=== PATIENT | female | born 1995 | race Caucasian/White ===

== ENCOUNTER 2021-09-02 15:52 | Emergency (ER) | payer OTHER ==
[~2021-09-02] VITALS: Ht 160 cm; Wt 85.4 kg
[2021-09-02 15:55] VITALS: BP 145/94
--- NOTE | 2021-09-02 16:10 | NUR ---
US [employer] US, RAJESH CALLED IN PER EDP.
[2021-09-02] MEDS ORDERED: TYLENOL PO STA (16:15)
[2021-09-02] MEDS ORDERED: NS 1000ML 1,000 ML IV ONE (16:30)
[2021-09-02 16:33] LABS: BILIRUBIN,URINE NEGATIVE (NEGATIVE); UROBILINOGEN,URINE 0.2 E.U./dL (0.2)
[2021-09-02 16:34] LABS: BASOPHIL % 0.2 % (0.0-0.2); LYMPHOCYTES # 0.33 10^3/uL1 (1.0-4.8); MEAN CORP HGB 29.7 pg (26-34); MONOCYTES # 0.2 10^3/uL (0.3-0.8); NEUTROPHIL # 10.4 10^3/uL (1.8-7.7); NEUTROPHILS % 94.6 % (41.0-85.0); PLATELET COUNT 222 10^3/uL (150-400); RED CELL DISTRIBUTION WIDTH 13.5 % (11.5-14.5)
--- NOTE | 2021-09-02 16:34 | ER.PDOC ---
General Chief Complaint: Requesting Medical Care Stated Complaint: ABD PAIN,VOMITTING Time seen by MD: 16:01 Source: patient Exam Limitations: no limitations History of Present Illness Initial Comments 26-year-old female who is estimated at 17 weeks gestational age presents with nausea, vomiting and abdominal cramping. Patient explains that her daug hter was sick earlier last week with nausea vomiting and diarrhea but resolved with time. States that she started having symptoms last night at 8 PM which progressed with slight vomiting to include abdominal cramping to diarrhea and chills. Patient denies any travels, has not had any rashes. Denies any pain in her stomach just cramping and a feeling of dehydration. Patient has not had any vaginal leakage of fluid, bleeding, or back pain. No urinary symptoms, no cough, no congestion, no headache, no blurred vision, no leg swelling. Patient is not vaccinated for Covid flu. Has not tried anything for symptoms prior to arrival Severity/Quality: moderate, cramping Abdominal Pain Onset Location: Generalized Abdomen Associated Symptoms (vomiting): mild vomiting Associated Symptoms (diarrhea): mild, watery Allergies: Coded Allergies: No Known Allergies (Unverified , 09/02/21) Vital Signs First Vital Signs Date Time Temp Pulse Resp B/P (MAP) Pulse Ox O2 Delivery O2 Flow Rate FiO2 09/02/21 15:55 102.9 132 20 98 09/02/21 17:05 141/74 (96) Room Air Last Vital Signs Date Time Temp Pulse Resp B/P (MAP) Pulse Ox O2 Delivery O2 Flow Rate FiO2 09/02/21 17:43 102.9 116 20 132/77 (95) 98 Room Air All Other Systems: Reviewed and Negative Physical Exam General Appearance: No Apparent Distress, WD/WN HEENT: PERRL/EOMI, Normal ENT Inspection, TMs Normal, Pharynx Normal Neck: Non-Tender, Full Range of Motion, Supple, Normal Inspection Respiratory: chest non-tender, lungs clear, normal breath sounds, no respiratory distress, no accessory muscle use Cardiovascular: Normal Peripheral Pulses, No Edema, No Gallop, No JVD, No Murmur, Tachycardia Gastrointestinal: Normal Bowel Sounds, Non Tender, Hyperactive bowel sounds, Soft Pelvic: No Masses Back: Normal Inspection, No CVA Tenderness, No Vertebral Tenderness Extremities: Normal Range of Motion, Non-Tender, Normal Inspection, No Pedal Edema, No Calf Tenderness, Normal Capillary Refill, Pelvis Stable Neurologic/Psychiatric: No Motor/Sensory Deficits, Alert, Normal Mood/Affect, Oriented x 3 Skin: Normal Color, Warm/Dry Lymphatic: No Adenopathy Comments FHT measured at 184 bpm Results/Orders Results/Orders Orders - EJESIEME,AL C DO Cbc With Auto Diff (09/02/21 16:08) Comprehensive Metabolic Panel (09/02/21 16:08) PT (09/02/21 16:08) Partial Thromboplastin Time. (09/02/21 16:08) Abo/Rh Type (09/02/21 16:08) Urinalysis (09/02/21 16:08) Chlamydia/Gcamplification(Ref) (09/02/21 16:08) Saline Lock (09/02/21 16:08) Hcg, Quantitative (09/02/21 16:08) Covid19 Antigen Mirta Susan (09/02/21 16:08) Influenza A&B (09/02/21 16:08) Blood Culture (09/02/21 16:08) Urine Culture (09/02/21 16:08) Lactic Acid(Ml) (09/02/21 16:08) 0.9 % Sodium Chloride (Ns 1000ml) (09/02/21 16:30) Acetaminophen (Tylenol) (09/02/21 16:15) Ringer's Solution,Lactated (Lactated Rin (09/02/21 16:30) Ceftriaxone Sodium (Rocephin) (09/02/21 16:41) 0.9 % Sodium Chloride (Ns 1000ml) (09/02/21 16:46) Ringer's Solution,Lactated (Lactated Rin (09/02/21 16:46) Acetaminophen (Tylenol) (09/02/21 16:46) Us Preg After 14 Wks (09/02/21 16:48) 0.9 % Sodium Chloride (Ns 100ml) (09/02/21 17:16) Ceftriaxone Sodium (Rocephin) (09/02/21 17:16) Vital Signs Date Time Temp Pulse Resp B/P (MAP) Pulse Ox O2 Delivery O2 Flow Rate FiO2 09/02/21 17:43 102.9 116 20 132/77 (95) 98 Room Air 09/02/21 17:05 102.9 132 20 141/74 (96) 98 Room Air 09/02/21 15:55 102.9 132 20 09/02/21 15:55 102.9 132 20 98 Administered Medications Medications (Trade) Dose Ordered Sig/Jeni Route PRN Reason Start Time Stop Time Status Last Admin Dose Admin Acetaminophen (Tylenol) 1,000 mg STAT STAT PO 09/02/21 16:15 09/02/21 16:18 DC 09/02/21 16:38 1,000 MG Ceftriaxone Sodium 1000 mg/ Sodium Chloride 100 ml @ 100 mls/hr STAT STAT IV 09/02/21 16:41 09/02/21 17:40 DC 09/02/21 17:19 100 MLS/HR Laboratory Tests Test 09/02/21 16:10 09/02/21 16:15 09/02/21 16:40 Urine Collection Type RANDOM Urine Color YELLOW Urine Appearance CLOUDY Urine Bilirubin NEGATIVE (NEGATIVE) Urine Ketones 1+ (NEGATIVE) H Urine Specific [place] 1.025 (1.005-1.030) Urine pH 5.0 (4.5-8.0) Urine Protein 1+ (NEGATIVE) H Urine Urobilinogen 0.2 E.U./dL (0.2) Urine Nitrate POSITIVE (NEGATIVE) H Urine Leukocyte Esterase 1+ (NEGATIVE) H Urine Glucose (Auto)(UA) NEGATIVE (NEGATIVE) Urine Blood NEGATIVE (NEGATIVE) Urine RBC NONE SEEN RBC/HPF (NONE Urine WBC TooNumerousToCount WBC/HPF (0-2) Urine Squamous Epithelial Cells MODERATE (<=FEW) Urine Bacteria MODERATE (NONE SEEN) H White Blood Count 11.0 10^3/uL (4.5-11.0) Red Blood Count 4.31 10^6/uL (4.00-5.20) Hemoglobin 12.8 g/dL (12.0-15.0) Hematocrit 39.3 % (36.0-46.0) Mean Corpuscular Volume 91.2 fL (78-100) Mean Corpuscular Hemoglobin 29.7 pg (26-34) Mean Corpuscular Hemoglobin Concent 32.6 g/dL (33-36.5) L Red Cell Distribution Width 13.5 % (11.5-14.5) Platelet Count 222 10^3/uL (150-400) Mean Platelet Volume 10.3 fL (7.8-11.0) Neutrophils (%) (Auto) 94.6 % (41.0-85.0) *H Lymphocytes (%) (Auto) 3.0 % (24.0-44.0) *L Monocytes (%) (Auto) 2.0 % (5.0-12.0) L Neutrophils # (Auto) 10.4 10^3/uL (1.8-7.7) H Lymphocytes # (Auto) 0.33 10^3/uL1 (1.0-4.8) L Monocytes # (Auto) 0.2 10^3/uL (0.3-0.8) L Absolute Immature Granulocyte (auto 0.02 10^3 u/L (0-2) Absolute Eosinophils (auto) 0.0 10^3/uL (0.0-0.2) Immature Granulocytes % 0.20 % (0.00-0.50) Eosinophils % 0.0 % (0.0-5.0) Basophils % 0.2 % (0.0-0.2) Basophils # 0.0 10^3/uL (0.0-0.1) Prothrombin Time 10.3 SEC (9.1-11.5) Prothrombin Time INR (Non-Therap) 1.0 Activated Partial Thromboplast Time 27.6 SEC (22.5-33.1) Sodium Level 135 mmol/L (132-145) Potassium Level 3.7 mmol/L (3.6-5.2) Chloride Level 101.0 mmol/L (96-109) Carbon Dioxide Level 24.3 mmol/L (20.0-32) Anion Gap 13.4 Blood Urea Nitrogen 8 mg/dL (7-18) Creatinine 0.81 mg/dL (0.59-1.40) Estimated GFR () 103.4 (>/=60) Est GFR (CKD-EPI)(Non-Afr [place]ian) 85.5 (>/=60) BUN/Creatinine Ratio 9.0 Glucose Level 110 mg/dL (70-110) Lactic Acid Level 1.8 mmol/L (0.5-1.9) Calcium Level 8.9 mg/dL (8.4-10.5) Total Bilirubin 0.6 mg/dL (0.2-1.0) Aspartate Amino Transferase (AST) 17 U/L (0-35) Alanine Aminotransferase (ALT) 35 U/L (12-78) Alkaline Phosphatase 119 U/L (50-136) Total Protein 7.8 g/dL (6.4-8.2) Albumin 3.0 g/dL (3.4-5.0) L Globulin 4.8 Albumin/Globulin Ratio 0.625 Human Chorionic Gonadotropin, Quant 65693 mIU/mL Influenza Type A Antigen NEGATIVE (NEG) Influenza Type B Antigen NEGATIVE (NEG) SARS-CoV-2 Antigen (Rapid) NEGATIVE (NEGATIVE) Blood Bank Test 09/02/21 16:20 Blood Type O NEGATIVE Progress Progress Patient was found to have a UTI. Improved significantly with fluids, antipyretics, and antibiotics here in house. Discussed at length patient's diagnosis and need for close follow-up and strict ED return precautions including but not limited to fever that does not improve, heart rate that it is higher than her baseline, abdominal pain or cramping, back to vaginal leakage of fluid. Patient voiced understanding with her mother at bedside. Will discharge at this time with Keflex and Zogerald follow-up with her OB in 3 days ER DEPART Departure Time of Disposition: 18:41 Disposition: 01 HOME / SELF CARE / HOMELESS Impression: Primary Impression: Additional Impression: UTI (urinary tract infection) Condition: Improved Patient Instructions: - Urinary Tract Infection Referrals: PCP,UNKNOWN (PCP) PRIMARY CARE PROVIDER Additional Instructions: Follow-up with your [facility]TER in 3 days. Return to ED for any new or worsening symptoms. Tylenol for fever Duration or Time Spent with Pa: 75 min Problem Qualifiers AL TSAI DO Sep 02, 2021 16:34
[2021-09-02] MEDS: LACTATED RINGERS 1,000 ML IV SCH ×3 (16:39→18:22)
[2021-09-02] MEDS ORDERED: ROCEPHIN 1,000 MG in NS 100ML 100 ML IV STA (16:41)
[2021-09-02] MEDS ORDERED: NS 1000ML 1,000 ML ONE (16:46)
[2021-09-02] MEDS ORDERED: TYLENOL PO ONE (16:46)
[2021-09-02] MEDS ORDERED: LACTATED RINGERS 1,000 ML ONE (16:46)
--- NOTE | 2021-09-02 16:48 | NUR ---
US RAJESH WITH US, PRESENT FOR US.
[2021-09-02 17:05] VITALS: BP 141/74
[2021-09-02] MEDS ORDERED: ROCEPHIN ONE (17:16)
[2021-09-02] MEDS ORDERED: NS 100ML 100 ML IV ONE (17:16)
[2021-09-02 17:17] LABS: CARBON DIOXIDE 24.3 mmol/L (20.0-32)
--- NOTE | 2021-09-02 17:38 | DIREP ---
PROCEDURE:US OB 2 3TRI DETAILED TRANSABD COMPARISON:None. INDICATIONS:abd pain , fever x1d TECHNIQUE: Transabdominal sonography of the gravid uterus was performed FINDINGS: NUMBER:[place]. POSITION:Variable, currently breech AMNIOTIC FLUID VOLUME:Largest vertical pocket, 3.8 cm, within normal limits PLACENTA:Anterior, overlying the os, though the gestation is early CERVIX:3.7 cm HEART RATE:174 BPM BIPARIETAL DIAMETER: 3.5 cm, 16 weeks 5 days HEAD CIRCUMFERENCE: 13 cm, 16 weeks 4 days ABD CIRCUMFERENCE: 10.9 cm, 16 weeks 6 days FEMUR LENGTH: 2.0 cm, 15 weeks 6 days ESTIMATED WEIGHT:154 g ULTRASOUND GA:16 weeks 4 days ULTRASOUND JESSICA:February 13, 2022 CLINICAL GA: 16 weeks 6 days CLINICAL JESSICA: February 11, 2022 CONCLUSION:Single live intrauterine gestation, 16 weeks 4 days, placenta overlying the internal os though this may be physiologic. Follow-up examination can confirm. Dictated by: Ciro Shin MD on 09/02/2021 at 05:33 PM
[2021-09-02 17:43] VITALS: BP 132/77
--- NOTE | 2021-09-02 18:50 | NUR ---
IV DC'D TIP INTACT, NO BLEEDING
[2021-09-02 18:53] VITALS: BP 109/54
== END 2021-09-02 18:53 | disposition home or self-care (01) ==
LOC: ER 15:52
DX: O23.42 Unspecified infection of urinary tract in pregnancy, second trimester (principal); O21.9 Vomiting of pregnancy, unspecified; O26.892 Other specified pregnancy related conditions, second trimester; R10.84 Generalized abdominal pain; Z20.822 Contact with and (suspected) exposure to COVID-19; Z3A.17 17 weeks gestation of pregnancy
CPT/HCPCS: 36415; 76805; 80053; 81001; 83605; 84702; 85025; 85610; 85730; 86900; 87040 ×2; 87077; 87086; 87186; 87426; 87491; 87591; 87804 ×2; 96361; 96365; 99284; A9150; J0696; J7030; J7120

== ENCOUNTER 2022-04-06 15:06 | Emergency (ER) | payer BC, OTHER ==
[~2022-04-06] VITALS: Ht 149.9 cm; Wt 81.6 kg
--- NOTE | 2022-04-06 15:06 | NUR ---
ARRIVAL PT ARRIVED VIA EMS TO ED 5 WITH C/O RIGHT LOW BACK PAIN AND N/V. EMS SAYS SHE WAS FOUND UNCONCIOUS IN HER CAR AND UPON ARRIVAL SHE WAS ALERT AND ORIENTED WITH GCS OF 15. PT SCOOTED OVER FROM GURNEY TO BED. EMS INITIATED IV. VITALS TAKEN AND DR IN ROOM.
[2022-04-06 15:09] VITALS: BP 131/86
[2022-04-06] MEDS ORDERED: ZOFRAN ONE (15:16)
[2022-04-06] MEDS ORDERED: TORADOL ONE (15:16)
[2022-04-06] MEDS: ZOFRAN IV STA (15:23)
[2022-04-06] MEDS: TORADOL IV STA (15:24)
[2022-04-06 15:27] LABS: BASOPHIL % 0.2 % (0.0-0.2); EOSINOPHIL % 0.1 % (0.0-5.0); LYMPHOCYTES # 1.14 10^3/uL1 (1.0-4.8); LYMPHOCYTES % 10.5 % (24.0-44.0); MEAN CORP HGB 27.4 pg (26-34); MONOCYTES # 0.3 10^3/uL (0.3-0.8); MONOCYTES % 3.1 % (5.0-12.0); NEUTROPHIL # 9.3 10^3/uL (1.8-7.7); NEUTROPHILS % 85.9 % (41.0-85.0); PLATELET COUNT 288 10^3/uL (150-400); RED CELL DISTRIBUTION WIDTH 14.6 % (11.5-14.5)
[2022-04-06 15:38] LABS: BILIRUBIN,URINE 1+ (NEGATIVE); UROBILINOGEN,URINE 0.2 E.U./dL (0.2)
[2022-04-06 15:44] LABS: CARBON DIOXIDE 25.6 mmol/L (20.0-32)
--- NOTE | 2022-04-06 16:26 | DIREP ---
PROCEDURE:CT ABD/PELVIS WITHOUT CONTRAST TECHNIQUE:No oral contrast was given. Axial cuts were obtained through the abdomen and pelvis without IV contrast. The images were viewed at lung and soft tissue settings. Sagittal and coronal reconstructions are provided. COMPARISON:None. INDICATIONS:ABD PAIN FINDINGS: LOWER CHEST:No infiltrate or pleural effusion. LIVER:Normal. BILIARY:Small layering gallstones. No pericholecystic inflammatory stranding or biliary duct dilatation. PANCREAS:Normal. SPLEEN:Normal. URINARY TRACT:Right proximal ureteral stone, 0.4 cm, at the level of L2/3 and causing mild/moderate hydronephrosis and minimal inflammatory stranding. No renal calculi. Unremarkable urinary bladder. ADRENALS:Normal. AORTA/VASCULAR:Normal. RETROPERITONEUM:Normal. BOWEL/MESENTERY:No bowel obstruction, inflammatory stranding, free fluid or air. Normal appendix. ABDOMINAL WALL:Small fat filled umbilical hernia. PELVIS:IUD appears in satisfactory position. Right 4.1 cm and left 5.5 cm adnexal cysts. BONES:Normal. OTHER:Normal. CONCLUSION: 1. 0.4 cm right ureteral stone causing mild/moderate hydronephrosis. 2. Bilateral adnexal cysts, likely ovarian in origin. 3. Cholelithiasis. Dictated by: Sarah Kearney MD on 04/06/2022 at 04:17 PM
[2022-04-06 16:45] VITALS: BP 131/86
--- NOTE | 2022-04-06 16:49 | ER.PDOC ---
General Chief Complaint: Lower Back Pain or Injury Stated Complaint: BACK PAIN Time seen by MD: 15:15 Source: patient, EMS Exam Limitations: no limitations History of Present Illness Initial Comments Patient is a 26-year-old female with no reported past medical history who comes in with Right-sided flank pain that started earlier this afternoon. Per EMS p atient had passed out secondary to pain in her vehicle and was found by the police. When EMS arrived patient was awake alert and oriented and had no issues. Patient states that she has a sharp right-sided flank pain that radiates towards her suprapubic area. Patient states that nothing seems to make the pain better or worse. Patient states that she has associated symptoms of mi ld nausea and has vomited once that was nonbilious nonbloody. Patient denies any other complaints or symptoms at this time including fever or dysuria. Allergies: Coded Allergies: No Known Allergies (Unverified , 09/02/21) Vital Signs First Vital Signs Date Time Temp Pulse Resp B/P (MAP) Pulse Ox O2 Delivery O2 Flow Rate FiO2 04/06/22 15:09 98.1 66 18 98 04/06/22 15:09 131/86 (101) Room Air* 0 21 Last Vital Signs Date Time Temp Pulse Resp B/P (MAP) Pulse Ox O2 Delivery O2 Flow Rate FiO2 04/06/22 15:09 98.1 66 18 131/86 (101) 98 Room Air* 0 21 Past Medical History Medical History: no pertinent history Surgical History: no surgical history Family History Significant Family History: no pertinent family hx Social History Smoking: non-smoker Alcohol Use: none Drug Use: none Reviewed Nursing Reviewed: Vital Signs, Abn. Noted, Nursing Assessment Constitutional: denies no symptoms reported, denies see HPI, denies chills, denies diaphoresis, denies fever, denies malaise, denies weakness, denies other EENTM: denies no symptoms reported, denies see HPI, denies eye pain, denies blurred vision, denies tearing, denies double vision, denies ear pain, denies ear discharge, denies nose pain, denies nose congestion, denies throat pain, denies throat swelling, denies mouth pain, denies mouth swelling, denies other Respiratory: denies no symptoms reported, denies see HPI, denies cough, denies orthopnea, denies shortness of breath, denies SOB with exertion, denies SOB at rest, denies stridor, denies wheezing, denies other Cardiovascular: denies no symptoms reported, denies see HPI, denies chest pain, denies edema, denies irregular heart rate, denies lightheadedness, denies palpitations; syncope (Possibly secondary to pain); denies other Gastrointestinal: abdominal pain, nausea, vomiting Genitourinary: denies no symptoms reported, denies see HPI, denies burning, denies dysuria, denies discharge, denies frequency, denies flank pain, denies hematuria, denies incontinence, denies pain, denies urgency, denies other Musculoskeletal: back pain Skin: denies no symptoms reported, denies see HPI, denies change in color, denies change in hair/nails, denies dryness, denies lesions, denies lumps, denies rash, denies other Psychiatric/Neurological: denies no symptoms reported, denies see HPI, denies anxiety, denies depressed, denies emotional problems, denies headache, denies numbness, denies paresthesia, denies pre-existing deficit, denies seizure, denies tingling, denies tremors, denies weakness, denies other Endocrine: denies no symptoms reported, denies see HPI, denies excessive sweating, denies flushing, denies intolerance to cold, denies intolerance to heat, denies increased hunger, denies increased thrist, denies increased urine, denies unexplained weight gain, denies unexplaned weight loss, denies other Hematologic/Lymphatic: denies no symptoms reported, denies see HPI, denies anemia, denies blood clots, denies easy bleeding, denies easy bruising, denies swollen glands, denies other Physical Exam General Appearance: Anxious HEENT: PERRL/EOMI, Normal ENT Inspection, TMs Normal, Pharynx Normal Neck: Non-Tender, Full Range of Motion, Supple, Normal Inspection Respiratory: chest non-tender, lungs clear, normal breath sounds, no respiratory distress, no accessory muscle use Cardiovascular: Normal Peripheral Pulses, Regular Rate, Rhythm, No Edema, No Gallop, No JVD, No Murmur Gastrointestinal: Normal Bowel Sounds, Soft Back: CVA Tenderness (R) Extremities: Normal Range of Motion, Non-Tender, Normal Inspection, No Pedal Edema, No Calf Tenderness, Normal Capillary Refill, Pelvis Stable Neurologic/Psychiatric: monologist II-XII NML as Tested, No Motor/Sensory Deficits, Alert, Normal Mood/Affect, Oriented x 3 Skin: Normal Color, Warm/Dry Lymphatic: No Adenopathy Results/Orders Results/Orders Orders - ESTELA CAMARENA MD Cbc With Auto Diff (04/06/22 15:06) Comprehensive Metabolic Panel (04/06/22 15:06) Lipase (04/06/22 15:06) PT (04/06/22 15:06) Partial Thromboplastin Time. (04/06/22 15:06) Hcg Qualitative Serum (04/06/22 15:06) Urinalysis (04/06/22 15:06) Saline Lock (04/06/22 15:06) Ct Abd/Pelvis Wo Iv Contrast (04/06/22 15:06) Ketorolac Tromethamine (Toradol) (04/06/22 15:06) Ondansetron Hcl/Pf (Zofran) (04/06/22 15:06) Ondansetron Hcl/Pf (Zofran) (04/06/22 15:16) Ketorolac Tromethamine (Toradol) (04/06/22 15:16) Urine Culture (04/06/22 UNK) Vital Signs Date Time Temp Pulse Resp B/P (MAP) Pulse Ox O2 Delivery O2 Flow Rate FiO2 04/06/22 15:09 98.1 66 18 131/86 (101) 98 Room Air* 0 21 04/06/22 15:09 98.1 66 18 04/06/22 15:09 98.1 66 18 98 Administered Medications Medications (Trade) Dose Ordered Sig/Jeni Route PRN Reason Start Time Stop Time Status Last Admin Dose Admin Ketorolac Tromethamine (Toradol) 15 mg OT STAT IV 04/06/22 15:06 04/06/22 15:09 DC 04/06/22 15:24 15 MG Ondansetron HCl (Zofran) 4 mg OT STAT IV 04/06/22 15:06 04/06/22 15:09 DC 04/06/22 15:23 4 MG Laboratory Tests Test 04/06/22 15:21 04/06/22 15:25 White Blood Count 10.8 10^3/uL (4.5-11.0) Red Blood Count 4.16 10^6/uL (4.00-5.20) Hemoglobin 11.4 g/dL (12.0-15.0) L Hematocrit 36.5 % (36.0-46.0) Mean Corpuscular Volume 87.7 fL (78-100) Mean Corpuscular Hemoglobin 27.4 pg (26-34) Mean Corpuscular Hemoglobin Concent 31.2 g/dL (33-36.5) L Red Cell Distribution Width 14.6 % (11.5-14.5) H Platelet Count 288 10^3/uL (150-400) Mean Platelet Volume 10.3 fL (7.8-11.0) Neutrophils (%) (Auto) 85.9 % (41.0-85.0) H Lymphocytes (%) (Auto) 10.5 % (24.0-44.0) L Monocytes (%) (Auto) 3.1 % (5.0-12.0) L Neutrophils # (Auto) 9.3 10^3/uL (1.8-7.7) H Lymphocytes # (Auto) 1.14 10^3/uL1 (1.0-4.8) Monocytes # (Auto) 0.3 10^3/uL (0.3-0.8) Absolute Immature Granulocyte (auto 0.02 10^3 u/L (0-2) Absolute Eosinophils (auto) 0.0 10^3/uL (0.0-0.2) Immature Granulocytes % 0.20 % (0.00-0.50) Eosinophils % 0.1 % (0.0-5.0) Basophils % 0.2 % (0.0-0.2) Basophils # 0.0 10^3/uL (0.0-0.1) Prothrombin Time 10.0 SEC (9.1-11.5) Prothrombin Time INR (Non-Therap) 1.0 Activated Partial Thromboplast Time 26.5 SEC (22.5-33.1) Sodium Level 139 mmol/L (132-145) Potassium Level 3.5 mmol/L (3.6-5.2) L Chloride Level 104.0 mmol/L (96-109) Carbon Dioxide Level 25.6 mmol/L (20.0-32) Anion Gap 12.9 Blood Urea Nitrogen 7 mg/dL (7-18) Creatinine 0.91 mg/dL (0.59-1.40) Estimated GFR () 90.4 (>/=60) Est GFR (CKD-EPI)(Non-Afr [place]) 74.7 (>/=60) BUN/Creatinine Ratio 7.0 Glucose Level 123 mg/dL (70-110) H Calcium Level 9.1 mg/dL (8.4-10.5) Total Bilirubin 0.7 mg/dL (0.2-1.0) Aspartate Amino Transferase (AST) 57 U/L (0-35) H Alanine Aminotransferase (ALT) 238 U/L (12-78) H Alkaline Phosphatase 367 U/L (50-136) H Total Protein 7.7 g/dL (6.4-8.2) Albumin 3.6 g/dL (3.4-5.0) Globulin 4.1 Albumin/Globulin Ratio 0.878 Lipase 161 U/L (114-286) Serum HCG, Qualitative NEGATIVE (NEGATIVE) Urine Collection Type UNKNOWN Urine Color YELLOW Urine Appearance CLOUDY Urine Bilirubin 1+ (NEGATIVE) H Urine Ketones 2+ (NEGATIVE) H Urine Specific [place] >=1.030 (1.005-1.030) Urine pH 5.5 (4.5-8.0) Urine Protein 2+ (NEGATIVE) H Urine Urobilinogen 0.2 E.U./dL (0.2) Urine Nitrate NEGATIVE (NEGATIVE) Urine Leukocyte Esterase TRACE (NEGATIVE) H Urine Glucose (Auto)(UA) NEGATIVE (NEGATIVE) Urine Blood 3+ (NEGATIVE) H Urine RBC TooNumerousToCount RBC/HPF (NONE Urine WBC 5-10 WBC/HPF (0-2) H Urine Squamous Epithelial Cells MANY (<=FEW) Urine Bacteria MANY (NONE SEEN) H Progress Progress Patient here with flank pain seeming to be a kidney stone will obtain a CT scan Noncon along with labs and work-up. I will provide pain and nausea control as necessary. Patient otherwise stable. 164reassessmentpatient states that her pain is completely gone. Discussed with her all CT findings including the 4 mm right ureteral stoneVoiced understanding of when to follow-up and when to return to the ER will discharge with ketorolac Zofran and tamsulosin. Of note we discussed her elevated liver enzymes as well as her cholelithiasis. No ductal dilation she will follow-up with this as well. Patient voiced understanding when to follow-up and when to return to the ER ER DEPART Departure Time of Disposition: 16:46 Disposition: 01 HOME / SELF CARE / HOMELESS Impression: Primary Impression: Kidney stone on right side Additional Impressions: Elevated liver enzymes Cholelithiasis Condition: Improved Patient Instructions: Cholelithiasis, [id number], Diet for Kidney Stones, Kidney Stones Referrals: PCP,UNKNOWN (PCP) PRIMARY CARE PROVIDER Additional Instructions: As we discussed you to follow-up with your primary care provider within 1 week. If you need a new primary care provider you can call Dr. Lao at [phone] to set up an appointment. You also need to follow-up with a Urologist here in [place] we have Dr. Mcelroy You can call [phone] of course she can see any primary care or urologist that you would like. Regarding your gallstones you can also call Dr. Arenas here in [facility] at [phone] to set up an appointment. If you have any new persistent or worsening symptoms or concerns please seek emergent medical attention. You also should take all medications as prescribed. Duration or Time Spent with Pa: 50 Problem Qualifiers Additional Impressions: Cholelithiasis Cholelithiasis location: gallbladder Cholecystitis presence: without cholecystitis Biliary obstruction: without biliary obstruction Qualified Codes: K80.20 - Calculus of gallbladder without cholecystitis without obstruction ESTELA CAMARENA MD Apr 06, 2022 16:49
== END 2022-04-06 16:54 | disposition home or self-care (01) ==
LOC: EDBD 15:06 → ER 15:06
DX: N20.0 Calculus of kidney (principal); R74.8 Abnormal levels of other serum enzymes; K80.20 Calculus of gallbladder without cholecystitis without obstruction
CPT/HCPCS: 99284; 74176; 96374; 96375; 87086; 80053; 85025; 36415; 81001; 83690; 85610; 85730; 84703; J2405; J1885